=== PATIENT | female | born 1960 | race Caucasian/White ===

== ENCOUNTER 2021-05-25 22:31 | Emergency (ER) | payer BC ==
[~2021-05-25] VITALS: Ht 154.9 cm; Wt 84.0 kg
[~2021-05-25 22:31] MED LIST: LEVO137T2 PO; NIF150C PO; VALS1TAB77 PO
[2021-05-25 23:36] LABS: CLARITY,URINE BLOODY (Clear); COLOR,URINE RED (Yellow); GLUCOSE, URINE NEGATIVE (Neg); KETONES,URINE NEGATIVE (Neg); OCCULT BLOOD,URINE LARGE (Neg); PROTEIN,URINE 100 mg/dl (Neg); UA COLLECTION TYPE CLN CATCH MIDSTREAM
[2021-05-25 23:37] LABS: BACTERIA,URINE NONE SEEN /HPF (Neg); LEUKOCYTE ESTERASE ,URINE NEGATIVE (Neg); NITRITES, URINE NEGATIVE (Neg); RBC,URINE TNTC /HPF (0-2); SQUAMOUS EPITHELIAL CELL,UR FEW /LPF (FEW); UROBILINOGEN,URINE 0.2 E.U/dL (0.2-1.0); WBC,URINE NONE SEEN /HPF (0-4)
[2021-05-25 23:49] LABS: HEMOGLOBIN 13.8 g/dl (12.0-16.0)
[2021-05-25 23:50] LABS: BASOPHILS # (AUTO) 0.1 X10'3 (0-0.2); BASOPHILS % (AUTO) 0.8 % (0-1); EOSINOPHILS # (AUTO) 0.1 X10'3 (0-0.9); EOSINOPHILS % (AUTO) 1.3 % (0-6); HEMATOCRIT 39.7 % (35.0-45.0); LYMPHOCYTES # (AUTO) 3.5 X10'3 (1.1-4.8); LYMPHOCYTES % (AUTO) 38.3 % (21-51); MEAN CORPUSCULAR HEMOGLOBIN 31.7 PG (27.0-31.0); MEAN CORPUSCULAR HGB CONC 34.8 g/dL (33.0-36.5); MEAN CORPUSCULAR VOLUME 91.1 FL (78-98); MEAN PLATELET VOLUME 7.6 FL (7.4-10.4); MONOCYTES # (AUTO) 0.9 X10'3 (0-0.9); NEUTROPHILS # (AUTO) 4.5 X10'3 (1.8-7.7); NEUTROPHILS % (AUTO) 49.6 % (42-75); PLATELET COUNT 310 X10'3 (140-440); RED BLOOD COUNT 4.36 X10'6 (4.20-5.60); RED CELL DISTRIBUTION WIDTH 12.7 % (11.5-14.5); WHITE BLOOD COUNT 9.1 X10'3 (4.5-11.0)
[2021-05-25 23:54] LABS: ALANINE AMINOTRANSFERASE 81 U/L (12-78); ALBUMIN 3.8 G/DL (3.4-5.0); ALKALINE PHOSPHATASE 93 IU/L (46-116); ANION GAP 10 (8-16); ASPARTATE AMINO TRANSFERASE 28 U/L (10-37); BILIRUBIN,DIRECT 0.1 MG/DL (0-0.3); BILIRUBIN,TOTAL 0.3 MG/DL (0.1-1.0); BLOOD UREA NITROGEN 15 MG/DL (7-18); BUN/CREATININE RATIO 16.9 (6.6-38.0); CALCIUM 9.6 MG/DL (8.5-10.1); CHLORIDE 105 MMOL/L (99-107); CREATININE 0.89 MG/DL (0.40-0.90); GLUCOSE 107 MG/DL (70-104); LIPASE 124 U/L (73-393); POTASSIUM 3.7 MMOL/L (3.5-5.1); SODIUM 142 MMOL/L (135-145); TOTAL CARBON DIOXIDE 26.8 MMOL/L (24-32); TOTAL PROTEIN 7.7 G/DL (6.4-8.2); eGFR 65 ML/MIN
[2021-05-26] MEDS ORDERED: HYDR-3965 PO (00:25)
[2021-05-26 00:45] VITALS: BP 135/72
== END 2021-05-26 00:48 | disposition home or self-care (01) ==
LOC: ER 22:32
DX: N20.0 Calculus of kidney (principal); N13.30 Unspecified hydronephrosis; R31.9 Hematuria, unspecified; R10.30 Lower abdominal pain, unspecified; Z98.890 Other specified postprocedural states; Z88.8 Allergy status to other drugs, medicaments and biological substances; Z79.899 Other long term (current) drug therapy
CPT/HCPCS: 36415; 74176; 80048; 80076; 81001; 83690; 85025; 99284

== ENCOUNTER 2021-08-10 12:51 | Emergency (ER) | payer BC ==
[~2021-08-10] VITALS: Ht 154.9 cm; Wt 84.1 kg
[2021-08-10 12:56] VITALS: BP 130/71
== END 2021-08-10 15:15 | disposition home or self-care (01) ==
LOC: ER 12:51
DX: M84.445A Pathological fracture, left finger(s), initial encounter for fracture (principal)
CPT/HCPCS: 29125; 73130; 99283